=== PATIENT | male | born 1965 | race Caucasian/White ===

== ENCOUNTER 2018-07-14 18:13 | Inpatient (IN) | payer OTHER ==
[2018-07-14 18:19] VITALS: BP 112/61
--- NOTE | 2018-07-14 18:27 | NUR ---
PATIENT STATES THAT WE ARE ALLOWED TO RELEASE INFORMATION TO LAURITA JONES AND ALSO HERLINDA BRUMFIELD. STATES THEIR PHONE NUMBER IS [phone].
[2018-07-14 19:16] LABS: BASO % 0.5 % (0.0-1.0); EOS # 0.1 10*3/uL (0.0-0.4); EOS % 1.6 % (1.0-4.0); HEMATOCRIT 38.8 % (42.0-52.0); HEMOGLOBIN 13.4 g/dl (14.0-18.0); LYMPH # 2.5 10*3/uL (1.3-4.4); LYMPH % 42.8 % (27.0-41.0); MEAN CELL VOLUME 89.2 fl (80.0-94.0); MEAN CORPUSCULAR HGB 30.8 pg (27.0-31.0); MEAN CORPUSCULAR HGB CONC 34.5 g/dl (33.0-37.0); MEAN PLATELET VOLUME 10.1 fl (9.6-12.3); MONO # 0.5 10*3/uL (0.1-1.0); NEUT # 2.7 10*3/uL (2.3-7.9); NEUT % 46.9 % (47.0-73.0); PLATELET COUNT AUTOMATED 208 10*3/uL (130-400); RED BLOOD COUNT 4.35 10*6/uL (4.50-5.90); RED CELL DISTRI WIDTH 13.4 % (0-14.5); WHITE BLOOD COUNT 5.8 10*3/uL (4.8-10.8)
[2018-07-14 19:23] LABS: INTERNATIONAL NORM RATIO 0.9 (2.0-3.5)
[2018-07-14 19:32] LABS: ALBUMIN 3.2 gm/dl (3.1-4.5); ALKALINE PHOSPHATASE 84 U/L (45-117); BUN 13 mg/dl (7-24); CHLORIDE 106 mmol/L (98-107); CREATININE 0.82 mg/dL (0.70-1.30); SGOT/AST 31 IU/L (3-35); SGPT/ALT 50 U/L (12-78); SODIUM 141 mmol/L (136-145); TOTAL PROTEIN 7.1 gm/dL (6.4-8.2)
[2018-07-14 19:47] VITALS: BP 116/81
[2018-07-14 20:24] VITALS: BP 111/70
[2018-07-14 21:18] VITALS: BP 115/75
--- NOTE | 2018-07-14 21:18 | NUR ---
A 53, admitted to , under the services of OMID Santos DO with a diagnosis of Alcohol withdrawal. Chief complaint is not feeling well, hot /cold sweats, shakiness, skin crawling, and anxiety. Patient arrived via ambulatory from ER. Monitor applied. Initial assessment completed. Vital signs taken and recorded. OMID SANTOS DO notified of admission to the unit. Orders received. See assessment for past medical history, medications and allergies. Patient and/or family oriented to unit. [facility] policy reviewed. Clothing/patient valuable form completed. EFRAIN SCHUMACHER
--- NOTE | 2018-07-14 22:02 | NUR ---
Requested and medicated with Bentyl for stomach cramps, and Robaxin for muscle aches. Will continue to monitor.
[2018-07-14 22:18] VITALS: BP 115/75
[2018-07-15] VITALS: BP 109/66
--- NOTE | 2018-07-15 03:08 | NUR ---
Requested and medicated with Trazodone to aid sleep and Ativan for visible tremors. Trazodone and Ativan effective to decrease tremors and anxiety, resting quietly, resp easy and regular. Continues to have diaphoresis while resting. Will continue to monitor.
[2018-07-15 04:00] VITALS: BP 111/58
--- NOTE | 2018-07-15 07:59 | NUR ---
MEDICATED WITH PRN IV ATIVAN FOR SHAKINESS/ANXIETY, ROBAXIN AND MOTRIN FOR LEG CRAMPS AND ACHING, ALSO ZOFRAN AND BENTYL FOR NAUSEA/ABDOMINAL CRAMPS. PATIENT APPLIED DEE HOSE BUT REFUSES LOVENOX, STATES FREQUENTLY AMBULATORY AND CANNOT TOLERATE THE BRUISING.
[2018-07-15 08:02] VITALS: BP 112/70
[2018-07-15 08:37] LABS: BILIRUBIN NEGATIVE (NEGATIVE); BLOOD NEGATIVE (NEGATIVE); CLARITY CLEAR (CLEAR); COLOR YELLOW (YELLOW); GLUCOSE NEGATIVE (NEGATIVE); KETONE NEGATIVE (NEGATIVE); LEUKO ESTERASE NEGATIVE (NEGATIVE); NITRITE NEGATIVE (NEGATIVE); UROBILINOGEN 0.2 E.U./dl (0.2-1.0)
[2018-07-15 08:46] LABS: URINE AMPHETAMINES < 1000 (1000ng/ml); URINE BARBITURATES < 200 (200ng/ml); URINE BENZODIAZEPINES < 200 (200ng/ml); URINE CANNABINOIDS (THC) < 50 (50ng/ml); URINE COCAINE < 300 (300ng/ml); URINE METHADONE < 300 (300ng/ml); URINE OPIATES < 300 (300ng/ml)
[2018-07-15 08:47] LABS: URINE PHENCYCLIDINE < 25 (25ng/ml)
[2018-07-15 09:10] LABS: BACTERIA TRACE; EPITHELIAL CELLS 0-2; RBC 0-2 rbc/hpf (0-2)
--- NOTE | 2018-07-15 09:31 | NUR ---
Patient resting. Responding to scheduled and prn medications with fewer complaints of pain and anxiety.
[2018-07-15 12:00] VITALS: BP 122/72
--- NOTE | 2018-07-15 13:17 | NUR ---
PATIENT MEETS [facility]. PATIENT WANTS INPATIENT TREATMENT FOR HIS [facility] PLAN. [facility] STAFF WILL FOLLOW UP WITH PATIENT CONERNING HIS AFTERCARE PLAN. PRICE MORGAN B.A. LANGUAGE PATHOLOGIST
--- NOTE | 2018-07-15 14:06 | NUR ---
MEDICATED WITH PRN IV ATIVAN FOR ANXIETY, PO BENTYL FOR ABDOMINAL CRAMPS, AND ROBAXIN FOR MUSCLE CRAMPS. ALSO ADMINISTERED SCHEDULED LIBRIUM AT THIS TIME.
[2018-07-15 16:00] VITALS: BP 116/63
--- NOTE | 2018-07-15 16:30 | NUR ---
PT MEDICATED WITH ZOFRAN FOR Z/O N/V. AND MOTRIN FOR MUSCLES ACHES WILL MONITOR
--- NOTE | 2018-07-15 17:48 | NUR ---
PT RESTING IN BED, EYES CLOSED. MOTRIN AND ZOFRAN APPEAR EFFECTIVE. WILL MONITOR
[2018-07-15 20:00] VITALS: BP 117/67
--- NOTE | 2018-07-15 20:20 | NUR ---
24 HR chart check completed.
--- NOTE | 2018-07-15 21:30 | NUR ---
Patient displaying withdrawal symptoms, including: irritability, anxiousness, restlessness and agitation, complicated by impulsive behavior. Patient scores a 5 on the withdrawal scale. Scheduled/PRN medications provided, SEE EMAR. Will continue to monitor medication effectiveness.
--- NOTE | 2018-07-15 23:00 | NUR ---
Patient resting. Responding to scheduled medications with fewer complaints of pain and anxiety.
[2018-07-16] VITALS: BP 121/56
--- NOTE | 2018-07-16 06:00 | NUR ---
Patient displaying withdrawal symptoms, including: irritability, anxiousness, restlessness and agitation, complicated by impulsive behavior. Scheduled/PRN medications provided, SEE EMAR. Will continue to monitor medication effectiveness.
--- NOTE | 2018-07-16 07:00 | NUR ---
Patient resting. Responding to scheduled medications with fewer complaints of pain and anxiety.
[2018-07-16 08:00] VITALS: BP 118/60
--- NOTE | 2018-07-16 08:23 | NUR ---
PT RESTING IN BED. NO DISTRESS NOTED. WILL MONITOR
--- NOTE | 2018-07-16 09:50 | NUR ---
PT REQUESTED AND GIVEN ROBAXIN FOR C/O MUSCLE ACHES WILL MONITOR
[2018-07-16 11:43] VITALS: BP 98/60
--- NOTE | 2018-07-16 11:48 | NUR ---
PATIENT WANTS TO GO TO [facility] FOR HIS AFTERCARE PLAN AND THEN FOLLOW UP WITH [facility] IN [place] FOR THEIR [facility]. [facility] STATED THAT THEY HAVE A POSSIBLE OPENING FOR July. [place] STAFF WILL SET UP TRANSPORTATION FOR PATIENT THROUGH HIS INSURANCE. PRICE MORGAN B.A. MACHINE TOOL TECHNICIAN INSTRUCTOR
--- NOTE | 2018-07-16 11:48 | NUR ---
PT REQUESTED AND GIVEN IV ATIVAN FOR C/O ANXIETY WILL MONITOR
--- NOTE | 2018-07-16 12:30 | NUR ---
PT LEFT AMA . LAURA DE SANTIAGO SOFTWARE EDUCATOR NOTIFIED
== END 2018-07-16 12:30 | disposition left against medical advice (07) | DRG 894 ==
LOC: ED 18:13 → 5E 18:49 → EDHOLD 18:49 → 5E 20:25
PROVIDERS: Internal Medicine Nephrology; ADMIT Emergency Medicine
DX: F10.239 Alcohol dependence with withdrawal, unspecified (principal); K86.0 Alcohol-induced chronic pancreatitis; F41.9 Anxiety disorder, unspecified; F12.90 Cannabis use, unspecified, uncomplicated; Y90.9 Presence of alcohol in blood, level not specified; D64.9 Anemia, unspecified; Z53.20 Procedure and treatment not carried out because of patient's decision for unspecified reasons; R73.03 Prediabetes; F31.9 Bipolar disorder, unspecified; F43.10 Post-traumatic stress disorder, unspecified; I10 Essential (primary) hypertension; Z82.49 Family history of ischemic heart disease and other diseases of the circulatory system; Z83.3 Family history of diabetes mellitus